=== PATIENT | male | born 1960 | race African-American/Black ===

== ENCOUNTER 2018-06-16 18:52 | Emergency (ER) | payer MEDICAID ==
[~2018-06-16] VITALS: Ht 193 cm; Wt 87.0 kg
[2018-06-16 18:56] VITALS: BP 180/107
== END 2018-06-16 19:35 | disposition left against medical advice (07) ==
LOC: ER 18:52
DX: R41.82 Altered mental status, unspecified (principal); Z53.21 Procedure and treatment not carried out due to patient leaving prior to being seen by health care provider